=== PATIENT | male | born 1955 | race Caucasian/White ===

== ENCOUNTER 2018-07-26 04:28 | Emergency (ER) | payer OTHER ==
[~2018-07-26] VITALS: Ht 185.4 cm; Wt 104.3 kg
--- NOTE | 2018-07-26 04:52 | NUR ---
unable to obtain home medications at this time, pt states he wanted to go to [facility] but was told by EMS they could not take him there, where they have his history and where he gets his medications filled.
--- NOTE | 2018-07-26 05:00 | NUR ---
dressings removed from l foot. approx 4x6cm wound to l heel, no drainage noted, appears black in color. 4th and 5th toes black in color, foul smelling, wound open to 4th proximal toe with pus drainage. redness noted to anterior foot extending up to ankle.
[2018-07-26] MEDS ORDERED: SODIUM CHLORIDE 0.9% 1000ML 1,000 ML IV STA (05:18)
[2018-07-26] MEDS ORDERED: MORPHINE SULFATE INJ 4 MG/ML INJ 1ML IV STA (05:18)
[2018-07-26] MEDS ORDERED: VANCOMYCIN 1GM/NS 250 ML 250 ML IV STA (05:18)
[2018-07-26] MEDS ORDERED: CEFEPIME 1GM/NS 0.9% 50 ML 50 ML IV STA (05:18)
[2018-07-26] MEDS ORDERED: MORPHINE SULFATE INJ 4 MG/ML INJ 1ML ONE (05:27)
[2018-07-26] MEDS ORDERED: CEFEPIME 1GM/NS 0.9% 50 ML 50 ML IV ONE (05:28)
[2018-07-26 05:33] LABS: BASOPHILS % 0.2 % (0.0-1.0); HEMATOCRIT 39.7 % (38.2-49.6); HEMOGLOBIN 12.7 g/dL (14.0-18.0); LYMPHOCYTES # (AUTO) 1.3 (1.0-3.2); LYMPHOCYTES % 8.3 % (18.0-39.1); MEAN CORPUSCULAR VOLUME 72.1 fL (81-99); MONOCYTES # (AUTO) 1.1 (0.2-0.8); MONOCYTES % 6.6 % (4.4-11.3); NEUTROPHILS # (AUTO) 13.4 (2.1-6.9); NEUTROPHILS % 84.1 % (38.7-80.0); PLATELET COUNT 318 x10e3/uL (140-360); RED BLOOD COUNT 5.51 x10e6/uL (4.3-5.7); RED CELL DISTRIBUTION WIDTH 16.2 % (11.7-14.4)
--- NOTE | 2018-07-26 05:49 | NUR ---
attempted to contact [facility] x 3 calls, unable to make contact with nursing press hand supervisor each call. ERP aware
--- NOTE | 2018-07-26 06:15 | NUR ---
made contact with [facility] [employer] and Logistics Management Specialist. faxed clinicals
--- NOTE | 2018-07-26 06:32 | NUR ---
wounds dressed with xeroform gauze, sterile 4x4, loosely applied kerlix and loosely applied coban. tolerated well. replaced patients prevalon boot back onto foot
--- NOTE | 2018-07-26 06:32 | Diagnostic Imaging Report ---
ANKLE 3+ VIEWS LEFT - 3 views HISTORY: Pain COMPARISON: None available. FINDINGS: Bones: No acute displaced fracture. Osseous alignment is within normal limits. No erosion or periosteal reaction. Calcaneal enthesophytes. Joints: The joint spaces are well-maintained. Soft tissues: Soft tissue defect of the plantar aspect of the hindfoot. IMPRESSION: Left heel wound without evidence of underlying calcaneal erosion. Signed by: Dr. Morro Ardon MD on 07/26/2018 6:28 AM
--- NOTE | 2018-07-26 06:37 | Diagnostic Imaging Report ---
FOOT LEFT COMPLETE - 3 views HISTORY: Pain COMPARISON: None available. FINDINGS: Bones: No acute displaced fracture. Osseous alignment is within normal limits. No periosteal reaction or erosion. Calcaneal enthesophytes. Joints: The joint spaces are well-maintained. Vascular calcifications. Soft tissues: Large heel wound. IMPRESSION: Large heel wound without radiographic evidence of calcaneal osteomyelitis. No acute fracture or dislocation of the left foot. Signed by: Dr. Morro Ardon MD on 07/26/2018 6:34 AM
[2018-07-26] MEDS ORDERED: SODIUM CHLORIDE 0.9% 1000ML 1,000 ML IV SCH (06:45)
--- NOTE | 2018-07-26 06:47 | NUR ---
report to HELEN Cervantes
--- OUTSIDE RECORDS SUMMARY | 2018-07-26 06:50 | XMS REPORT ---
Author [facility] Address Unknown Phone Unavailable Care Team Providers [facility] Hand Name Role Phone Leonard CLARK Unavailable Unavailable Problems This patient has no known problems. Allergies, Adverse Reactions, Alerts This patient has no known allergies or adverse reactions. Medications This patient has no known medications. Results Test Description Test Time Test Comments Text Results Atomic Results Result Comments FOOT LEFT COMPLETE 2018-07-26 06:30:00 [place] [address] Patient Name: KATELYNN RICO MR #: [id number] : 1955 Age/Sex: 63/M Req #: [id number] Adm Physician: Ordered by: LINO CLARK MD Report #: [id number] Location: ER Room/Bed: Procedure: [id number] DX/FOOT LEFT COMPLETE Exam Date: 07/26/18 Exam Time: 06 REPORT STATUS: Signed FOOT LEFT COMPLETE - 3 views HISTORY: Pain COMPARISON: None available. FINDINGS: Bones: No acute displaced fracture. Osseous alignment is within normal limits. No periosteal reaction or erosion. Calcaneal enthesophytes. Joints: The joint spaces are well-maintained. Vascular calcifications. Soft tissues: Large heel wound. IMPRESSION: Large heel wound without radiographic evidence of calcaneal osteomyelitis. No acute fracture or dislocation of the left foot. Signed by: Dr. Morro Salgado MD on 07/26/2018 6:34 AM Dictated By: MORRO SALGADO MD 3 Transcribed By: GAUDENCIO on 07/26/18633 COPY TO: LINO CLARK MD ANKLE 3+ VIEWS LEFT 2018-07-26 06:27:00 [place] [address] Patient Name: KATELYNN RICO MR #: [id number] : 1955 Age/Sex: 63/M Req #: [id number] Adm Physician: Ordered by: LINO CLARK MD Report #: [id number] Location: ER Room/Bed: Procedure: [id number] DX/ANKLE 3+ VIEWS LEFT Exam Date: 07/26/18 Exam Time: 604 REPORT STATUS: Signed ANKLE 3+ VIEWS LEFT - 3 views HISTORY: Pain COMPARISON: None available. FINDINGS: Bones: No acute displaced fracture. Osseous alignment is within normal limits. No erosion or periosteal reaction. Calcaneal enthesophytes. Joints: The joint spaces are well-maintained. Soft tissues: Soft tissue defect of the plantar aspect of the hindfoot. IMPRESSION: Left heel wound without evidence of underlying calcaneal erosion. Signed by: Dr. Morro Salgado MD on 07/26/2018 6:28 AM Dictated By: MORRO SALGADO MD 7 Transcribed By: GAUDENCIO on 07/26/18627 COPY TO: LINO CLARK MD
[2018-07-26 07:08] LABS: ALBUMIN/GLOBULIN RATIO 0.7 (0.8-2.0); ANION GAP 13.7 mmol/L (8-16); CALCIUM 9.4 mg/dL (8.4-10.2); CREATININE, SERUM 1.38 mg/dL (0.72-1.25); POTASSIUM 3.7 mmol/L (3.5-5.1)
[2018-07-26] MEDS ORDERED: MORPHINE SULFATE INJ 4 MG/ML INJ 1ML IV ONE (07:45)
== END 2018-07-26 07:52 ==
LOC: ER 04:28 → ERHOLD 06:48 → UNDOADMIN 06:48
DX: M25.572 Pain in left ankle and joints of left foot (principal); L03.116 Cellulitis of left lower limb; L03.032 Cellulitis of left toe; R26.2 Difficulty in walking, not elsewhere classified
CPT/HCPCS: 36415; 73610; 73630; 80053; 83605; 85025; 87040; 87071; 87186; 87205; 96374; 99284; J0692; J2270; J3370; J7030